=== PATIENT | female | born 1970 | race Caucasian/White ===

== ENCOUNTER 2019-09-09 18:50 | Emergency (ER) | payer SELFPAY ==
[~2019-09-09] VITALS: Ht 147.3 cm; Wt 56.7 kg
[2019-09-09] MEDS ORDERED: cefTRIAXone SOD 1,000 MG VL IM ONE (21:00)
[2019-09-09 21:12] VITALS: BP 167/91
== END 2019-09-09 21:11 | disposition home or self-care (01) ==
LOC: ER 18:55
DX: K04.7 Periapical abscess without sinus (principal); F17.210 Nicotine dependence, cigarettes, uncomplicated; Z98.890 Other specified postprocedural states
CPT/HCPCS: 96372; 99283; J0696

== ENCOUNTER 2024-12-31 09:12 | Emergency (ER) | payer MEDICAID ==
[~2024-12-31] VITALS: Ht 149.9 cm; Wt 52.1 kg
[2024-12-31 09:34] VITALS: BP 169/97; PULSE 96; RESP 20; TEMP 97.9; O2SAT 97
[2024-12-31] MEDS: FAMOTIDINE 20 MG TAB PO ONE (09:47)
[2024-12-31] MEDS: methylPREDNISolone SOD SUCC 125 MG/2 ML VL IM ONE (09:48)
[2024-12-31] MEDS: LORATADINE 10 MG TAB PO ONE (09:48)
[2024-12-31] MEDS ORDERED: CEPH500C PO (09:56)
[2024-12-31] MEDS ORDERED: CETI5TAB6 PO (09:56)
--- NOTE | 2024-12-31 09:56 | ED.PDOC ---
Eye-HPI HPI Comments 54-year-old female with no pertinent MHx presents with a chief complaint of localized swelling to the left lower orbital region x3 days. Unknown cause and reports she has not tried any [id number] medications for the symptoms. Denies any tenderness to touch. Denies any ocular pain for vision changes. 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 Family History Family History: Reviewed,noncontributory to illness, No family hx of Cancer, No family hx of DM, No family hx of Heart jimmie, No family hx of HTN, No family hx ofKidney jimmie, No family hx of Liver jimmie Social History Smoker: Cigarettes, Greater Than 1 Pack/Day Alcohol: Denies ETOH Use Drugs: Denies Drug Use All Other Systems: Reviewed and Negative (per hpi) Physical Exam General Appearance: No Apparent Distress, Normal HEENT: Normal ENT Inspection, Pharynx Normal, TMs Normal Neck: Full Range of Motion, Non-Tender, Normal, Normal Inspection Respiratory: Chest Non-Tender, Lungs Clear, No Accessory Muscle Use, No Respiratory Distress, Normal Breath Sounds Cardiovascular: No Murmur, No Gallop, Regular Rate/Rhythm Breast Exam: Deferred Gastrointestinal: No Organomegaly, Non Tender, No Pulsatile Mass, Normal Bowel Sounds, Soft Genitalia: Deferred Pelvic: Deferred Rectal: Deferred Extremities: No calf tenderness, Normal capillary refill, Normal inspection, Normal range of motion, Non-tender, No pedal edema Musculoskeletal : Apperance: Normal Neurologic: Alert, radiocommunications technician II-XII nml as Tested, No Motor Deficits, Normal Affect, Normal Mood, No Sensory Deficits Cerebellar Function: Normal Reflexes: Normal Skin: Dry, Normal Color, Warm Lymphatic: No Adenopathy Was a procedure done? Was a procedure done?: No EENT DIFF Eye: Allergic, Viral X-Ray, Labs, Meds, VS Vital Signs Date Time Temp Pulse Resp B/P (MAP) Pulse Ox O2 Delivery O2 Flow Rate FiO2 12/31/24 09:34 97.9 96 20 169/97 (121) 97 97.9 12/31/24 09:34 96 20 97 Room Air 12/31/24 09:16 97.9 96 20 169/97 (121) 97 97.9 X-Ray, Labs, Meds, VS Comment + Swelling w/o erythema through the lower orbital region No limitation of EOM, vision loss, diploplia Based on H&P and exam, this patient appears to be low risk for emergent or other causes of lid swelling such as orbital cellulitis, chalazion, hordeolum, dacryocystitis or dacryoadenitis, lacrimal tumor. Patient is stable for discharge at this time. External notes reviewed. Test results and diagnostic imaging interpreted. All diagnostic findings, discharge care, education and instructions provided Follow-up with PCP in 2 to 3 days Patient verbalized understanding and agreed to treatment plan Vital signs stable, afebrile, no acute distress noted Patient ambulatory with strong steady gait Advised to return precautions for any new or worsening symptoms, return to ER immediately for re-evaluation Patient is aware that the purpose of this visit was for an acute medical emergency requiring emergent stabilization. Chronic conditions, including malignancies have not been ruled out. Patient is instructed to follow up with PCP as directed and discharge instructions for continued care and workup. If unable to arrange follow-up, patient is to return to the emergency department for reassessment. Patient (parent or legal guardian if applicable) was given verbal and written discharge instructions and acknowledges understanding. Time of 1ST Reevaluation: 09:48 Reevaluation 1ST: Improved Patient Education/Counseling: Diagnosis, Treatment Family Education/Counseling: Diagnosis, Treatment Departure 1 Departure Time of Disposition: 09:53 Impression: Primary Impression: Edema of left orbit Disposition: 01 HOME / SELF CARE / HOMELESS Condition: Stable e-Prescriptions Cetirizine Hcl (Cetirizine Hcl) 5 Mg Tab 10 MG PO DAILY for 10 Days, #20 TAB 0 Refills Prov: MARTÍNEZ ALLEN UNIX ADMINISTRATOR 12/31/24 Cephalexin Monohydrate (Cephalexin) 500 Mg Cap 1 CAP PO QID for 5 Days, #28 CAP 0 Refills Prov: MARTÍNEZ ALLEN UNIX ADMINISTRATOR 12/31/24 Critical Care Note Critical Care Time?: No Stability Stability form required: No Heart Score Heart Score: Heart Score Response (Comments) Value History N/A 0 EKG N/A 0 Age N/A 0 Risk Factors N/A 0 Troponin N/A 0 Total 0 MARTÍNEZ ALLEN NP Dec 31, 2024 09:56
== END 2024-12-31 09:58 | disposition home or self-care (01) ==
LOC: ER 09:12
DX: H05.222 Edema of left orbit (principal); F17.210 Nicotine dependence, cigarettes, uncomplicated; Z98.890 Other specified postprocedural states
CPT/HCPCS: 96372; 99283; J2919

== ENCOUNTER 2025-03-27 15:04 | Emergency (ER) | payer MEDICAID ==
[~2025-03-27] VITALS: Ht 147.3 cm; Wt 54.8 kg
[~2025-03-27 15:04] MED LIST: CEPH500C PO; CETI5TAB6 PO
[2025-03-27 15:16] VITALS: BP 173/81; PULSE 87; RESP 20; TEMP 97.3; O2SAT 95
--- NOTE | 2025-03-27 16:49 | ED.PDOC ---
Eye-HPI HPI Comments This is a 54 year old female presenting to the ED with chief complaint of eye redness. Patient reports that she has been experiencing left eye redness with associated discharge, pain, and dizziness since yesterday. Patient denies any nausea, headache, blurred vision, chest pain, or SOB. Chief Complaint: Eye Problem Time Seen by MD: 16:48 Primary Care Provider: NONE Reviewed Notes: Nurses Notes, Medications, Allergies Allergies: Coded Allergies: NO KNOWN ALLERGIES (Unverified , 10/10/11) Home Meds Active Scripts Cetirizine Hcl (Cetirizine Hcl) 5 Mg Tab, 10 MG PO DAILY for 10 Days, #20 TAB 0 Refills Prov:MARTÍNEZ ALLEN DECKHAND SPONGE BOAT 12/31/24 Cephalexin Monohydrate (Cephalexin) 500 Mg Cap, 1 CAP PO QID for 5 Days, #28 CAP 0 Refills Prov:MARTÍNEZ ALLEN DECKHAND SPONGE BOAT 12/31/24 Information Source: Patient Mode of Arrival: Ambulatory Timing: Days Duration: Since onset Quality: Pain, Red, Discharge Eye Location: Left Conjunctiva: Injection, Discharge Past Medical History PAST MEDICAL HISTORY: Denies 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 Family History Family History: Reviewed,noncontributory to illness, No family hx of Cancer, No family hx of DM, No family hx of Heart jimmie, No family hx of HTN, No family hx ofKidney jimmie, No family hx of Liver jimmie Social History Smoker: Cigarettes, Greater Than 1 Pack/Day Alcohol: Denies ETOH Use Drugs: Denies Drug Use Constitutional: denies: chills, diaphoresis, fatigue, fever, malaise, sweats, weakness, others EENTM: reports: eye pain, eye redness; denies: blurred vision, double vision, ear bleeding, ear discharge, ear drainage, ear pain, ear ringing, hearing loss, mouth pain, mouth swelling, nasal discharge, nose bleeding, nose congestion, nose pain, photophobia, tearing, throat pain, throat swelling, voice changes, others Respiratory: denies: cough, hemoptysis, orthopnea, SOB at rest, shortness of breath, SOB with excertion, stridor, wheezing, others Cardiovascular: denies: chest pain, dizzy spells, diaphoresis, Dyspnea on exertion, edema, irregular heart beat, left arm pain, lightheadedness, palpitations, PND, syncope, others Gastrointestinal: denies: abdomen distended, abdominal pain, blood streaked bowels, constipated, diarrhea, dysphagia, difficulty swallowing, hematemesis, melena, nausea, poor appetite, poor fluid intake, rectal bleeding, rectal pain, vomiting, others Genitourinary: denies: abnormal vagina bleeding, burning, dyspareunia, dysuria, flank pain, frequency, hematuria, incontinence, pain, , vagina discharge, urgency, others Neurological: reports: dizziness; denies: fainting, headache, left sided numbness, left sided weakness, numbness, paresthesia, pre-existing deficit, right sided numbness, right sided weakness, seizure, speech problems, tingling, tremors, weakness, others Musculoskeletal: denies: back pain, gout, joint pain, joint swelling, muscle pain, muscle stiffness, neck pain, others Integumetry: denies: bruises, change in color, change in hair/nails, dryness, laceration, lesions, lumps, rash, wounds, others Allergic/Immunocompromised: denies: Difficulty Healing, Frequent Infections, Hives, Itching, others Hematologic/Lymphatic: denies: anemia, blood clots, easy bleeding, easy bruising, swollen glands, others Endocrine: denies: excessive hunger, excessive sweating, excessive thirst, excessive urination, flushing, intolerance to cold, intolerance to heat, unexplained weight gain, unexplained weight loss, others Psychiatric: denies: anxiety, bipolar disorder, depression, hopeless, panic disorder, schizophrenia, sleepless, suicidal, others All Other Systems: Reviewed and Negative Physical Exam General Appearance: Normal HEENT: Normal ENT Inspection, PERRL/EOMI, Other (Conjunctivitis left eye) Neck: Full Range of Motion, Non-Tender, Normal, Normal Inspection Respiratory: Chest Non-Tender, Lungs Clear, No Accessory Muscle Use, No Respiratory Distress, Normal Breath Sounds Cardiovascular: No Edema, No JVD, No Murmur, No Gallop, Normal Peripheral Pulses, Regular Rate/Rhythm Breast Exam: Deferred Gastrointestinal: No Organomegaly, Non Tender, No Pulsatile Mass, Normal Bowel Sounds, Soft Genitalia: Deferred Pelvic: Deferred Rectal: Deferred Extremities: No calf tenderness, Normal capillary refill, Normal inspection, Normal range of motion, Non-tender, No pedal edema Neurologic: Alert, finishing range feeder II-XII nml as Tested, No Motor Deficits, Normal Affect, Normal Mood, No Sensory Deficits Cerebellar Function: Normal Reflexes: Normal Skin: Dry, Normal Color, Warm Peripheral Pulses: 0 carotid (R), 0 carotid (L) Lymphatic: No Adenopathy Was a procedure done? Was a procedure done?: No EENT DIFF Eye: Conjunctivitis, Allergic, Bacterial Ear: N/A Nose: N/A Mouth: N/A Sore Throat: N/A X-Ray, Labs, Meds, VS Vital Signs Date Time Temp Pulse Resp B/P (MAP) Pulse Ox O2 Delivery O2 Flow Rate FiO2 03/27/25 15:16 97.3 87 20 173/81 (111) 95 97.3 X-Ray, Labs, Meds, VS Comment Seen in the emergency department okay the patient has conjunctivitis to the left eye and will be treated as such Time of 1ST Reevaluation: 17:00 Reevaluation 1ST: Unchanged Time of 2ND Reevaluation: 17:23 Reevaluation 2ND: Unchanged Consultation: PCP Patient Education/Counseling: Diagnosis, Treatment, Prognosis, Need For Follow Up Family Education/Counseling: Diagnosis, Treatment, Prognosis, Need For Follow Up, No Family Present SEPSIS Sepsis Screen Date sepsis recognized/suspect: Mar 27, 2025 Time Sepsis recognized/suspect: 1515 Recent Procedure: No On Antibiotic Therapy: No Respiratory Rate >20: No Heart Rate >90: No Temp<36 C (96.8 F) or >38.3 C: No SBP <90 or MAP <65 mmHG: No New Acute Mental Status Change: No Is the patient on CPAP, BIPAP,: No Vital Signs Date Time Temp Pulse Resp B/P (MAP) Pulse Ox O2 Delivery O2 Flow Rate FiO2 03/27/25 15:16 97.3 87 20 173/81 (111) 95 97.3 Departure 1 Departure Time of Disposition: 17:24 Impression: Primary Impression: Acute conjunctivitis, right eye Qualified Codes: H10.31 - Unspecified acute conjunctivitis, right eye Disposition: HOME / SELF CARE / HOMELESS Condition: Fair Additional Instructions: Take the medication as directed e-Prescriptions [id number] (MAXITROL 0.1% OPTHALMIC SUSPENSION) [address] 1 DROP OP BID for 5 Days, #5 DROP Prov: ANNELIESE COLIN MD 03/27/25 Discharged With: Self Critical Care Note Critical Care Time?: No Stability Stability form required: No Heart Score Heart Score: Heart Score Response (Comments) Value History N/A 0 EKG N/A 0 Age 45-64 1 Risk Factors No known risk factors 0 Troponin N/A 0 Total 1 I personally scribed for ANNELIESE COLIN MD ([email or web address]) on 03/27/25 at 16:49. Electronically submitted by Parmjit Garcia ([email or web address]). ANNELIESE COLIN MD Mar 27, 2025 16:49
[2025-03-27] MEDS ORDERED: MAX5OPS OP (17:25)
== END 2025-03-27 21:01 | disposition home or self-care (01) ==
LOC: ER 15:04
DX: H10.31 Unspecified acute conjunctivitis, right eye (principal); F17.210 Nicotine dependence, cigarettes, uncomplicated; Z98.890 Other specified postprocedural states; Z79.899 Other long term (current) drug therapy